=== PATIENT | female | born 1990 | race Caucasian/White ===

== ENCOUNTER 2016-09-30 05:57 | Day surgery (SDC) | payer OTHER ==
[~2016-09-30] VITALS: Ht 160 cm; Wt 82.6 kg
[~2016-09-30 05:57] MED LIST: IRON65 M2 PO; MOTRIN800 M1 PO; PRENATAL VITAMI1 T10 PO
[2016-09-30] MEDS ORDERED: fentaNYL 0.05 MG/ML VIAL ONE (07:43)
[2016-09-30] MEDS ORDERED: MIDAZOLAM 2 MG/2 ML VIAL ONE (07:43)
[2016-09-30] MEDS ORDERED: BUPIVACAINE-MPF/EPI 0.5% 30 ML VIAL INJ ONE (07:46)
[2016-09-30] MEDS ORDERED: ACETAMINOPHEN/CODEINE 300/30MG 1 TAB PO PRN (07:55)
[2016-09-30] MEDS ORDERED: MORPHINE SULFATE 4 MG/ML SYR IM/IVP PRN (07:55)
[2016-09-30] MEDS ORDERED: SEVOFLURANE 250 ML BTL INH ONE (07:55)
[2016-09-30] MEDS ORDERED: LIDOCAINE MPF 2% 10ML 200 MG/10ML VIAL INJ ONE (07:55)
[2016-09-30] MEDS ORDERED: PROPOFOL 200 MG/20 ML VIAL IV ONE (07:55)
[2016-09-30] MEDS ORDERED: KETOROLAC 30 MG/ML VIAL IVP ONE (07:55)
[2016-09-30] MEDS ORDERED: ONDANSETRON 4 MG/2 ML VIAL IVP PRN ×2 (07:55→08:25)
[2016-09-30] MEDS ORDERED: DEXAMETHASONE 4 MG/ML VIAL IVP ONE (07:55)
[2016-09-30] MEDS ORDERED: ONDANSETRON 4 MG/2 ML VIAL IVP ONE (07:55)
[2016-09-30] MEDS ORDERED: IBUPROFEN 800 MG TAB PO PRN (07:55)
[2016-09-30] MEDS ORDERED: MEPERIDINE 25 MG/ML SYR ONE (09:10)
[2016-09-30] MEDS: MEPERIDINE 25 MG/ML SYR IVP PRN ×2 (09:10→09:20)
[2016-09-30] MEDS: HYDROmorphone 1 MG/ML AMP IVP PRN ×4 (09:21→09:51)
[2016-09-30] MEDS ORDERED: HYDROmorphone PFS 2 MG/ML SYR ONE (09:22)
== END 2016-09-30 12:05 | disposition home or self-care (01) ==
LOC: MDS 05:57 → MMU 06:03 → MDS 12:05
PROVIDERS: ATTEND Obstetrics & Gynecology
DX: Z30.2 Encounter for sterilization (principal); Z64.1 Problems related to multiparity; E66.3 Overweight; I12.9 Hypertensive chronic kidney disease with stage 1 through stage 4 chronic kidney disease, or unspecified chronic kidney disease; E11.22 Type 2 diabetes mellitus with diabetic chronic kidney disease; N18.9 Chronic kidney disease, unspecified; F03.90 Unspecified dementia, unspecified severity, without behavioral disturbance, psychotic disturbance, mood disturbance, and anxiety; G40.909 Epilepsy, unspecified, not intractable, without status epilepticus; K21.9 Gastro-esophageal reflux disease without esophagitis; M51.87 Other intervertebral disc disorders, lumbosacral region; F17.210 Nicotine dependence, cigarettes, uncomplicated; Z98.890 Other specified postprocedural states
CPT/HCPCS: 58600; J0690; J1100; J1170; J1885; J2001; J2175; J2250; J2270; J2405; J2704; J3010; J3490; J7060; J7120